=== PATIENT | male | born 2000 | race Caucasian/White ===

== ENCOUNTER 2020-08-29 13:07 | Inpatient (IN) | payer OTHER, SELFPAY ==
[~2020-08-29] VITALS: Ht 170.2 cm; Wt 72.7 kg
[2020-08-29 13:36] LABS: HEMATOCRIT 48.6 % (42.0-52.0); HEMOGLOBIN 16.8 g/dl (13.5-17.5); MEAN CORPUSCULAR HEMOGLOBIN 31.3 pg (27.0-33.0); MEAN CORPUSCULAR HGB CONC 34.6 g/dl (32.0-36.5); MEAN CORPUSCULAR VOLUME 90.7 fl (80.0-96.0); PLATELET COUNT, AUTOMATED 266 10^3/uL (150-450); RED BLOOD COUNT 5.36 10^6/uL (4.30-6.10); WHITE BLOOD COUNT 8.9 10^3/uL (4.0-10.0)
[2020-08-29 14:09] LABS: AMPHETAMINES LEVEL URINE POSITIVE (NEGATIVE); BARBITURATES URINE NEGATIVE (NEGATIVE); BENZODIAZEPINES URINE NEGATIVE (NEGATIVE); CANNABINOIDS URINE POSITIVE (NEGATIVE); COCAINE METABOLITE URINE NEGATIVE (NEGATIVE); METHADONE URINE NEGATIVE (NEGATIVE); OPIATES URINE NEGATIVE (NEGATIVE); PHENCYCLIDINE URINE NEGATIVE (NEGATIVE)
[2020-08-29 14:22] LABS: ALBUMIN 4.5 GM/DL (3.2-5.2); ALT/SGPT 16 U/L (12-78); BILIRUBIN,DIRECT 0.2 MG/DL (0.0-0.2); BILIRUBIN,TOTAL 0.9 MG/DL (0.2-1.0); BLOOD UREA NITROGEN 14 MG/DL (7-18); CALCIUM LEVEL 9.4 MG/DL (8.5-10.1); CARBON DIOXIDE LEVEL 27 MEQ/L (21-32); CHLORIDE LEVEL 110 MEQ/L (98-107); CREATININE FOR GFR 0.91 MG/DL (0.70-1.30); ETHYL ALCOHOL (ETHANOL) < 0.003 % (0.000-0.010); GLOMERULAR FILTRATION RATE > 60.0 (>60); GLUCOSE, FASTING 86 MG/DL (70-100); POTASSIUM SERUM 4.3 MEQ/L (3.5-5.1); SALICYLATE LEVEL 2.2 MG/DL (5.0-30.0); SODIUM LEVEL 141 MEQ/L (136-145); THYROID STIMULATING HORMONE 0.861 uIU/ML (0.358-3.740); TOTAL PROTEIN 7.6 GM/DL (6.4-8.2)
[2020-08-29 14:23] LABS: ACETAMINOPHEN LEVEL < 2.0 UG/ML (10.0-30.0)
[2020-08-29] MEDS ORDERED: NICOTINE 21MG/24HR 1 EA TRANSDERMAL TD ONE (17:20)
[2020-08-30 12:31] LABS: RSV AMPLIFICATION NEGATIVE (NEGATIVE)
[2020-08-30] MEDS ORDERED: MAALOX 30 ML SUSP *UDC PO PRN (13:35)
[2020-08-30] MEDS ORDERED: MOM 30ML SUSPENSION UDC PO PRN (13:35)
[2020-08-30] MEDS ORDERED: ACETAMINOPHEN TAB 650MG DOSE (2X325MG) PO PRN (13:35)
[2020-08-30] MEDS ORDERED: traZODone 50 MG TAB PO PRN (13:35)
[2020-08-30] MEDS: NICOTINE 21MG/24HR 1 EA TRANSDERMAL TD SCH (14:01)
[2020-08-30 16:42] VITALS: BP 142/94
[2020-08-30] MEDS ORDERED: LORazepam 2 MG TAB PO PRN (17:20)
[2020-08-30] MEDS: THIAMINE 100 MG TAB PO SCH (17:30)
[2020-08-31 06:30] VITALS: BP 135/71
[2020-08-31 07:23] VITALS: BP 135/71
--- NOTE | 2020-08-31 08:20 | MHHPEPDOC ---
General Date Of Admission: Aug 30, 2020 Legal Status: 9.39 Chief Complaint "[I relapsed with methamphetamine after 20 days of sobriety. I was frustrated after my father kicked me out. I texted my sister that I was going to kill myself]. History of Present Illness HISTORY OF THE PRESENT ILLNESS: Patient is a 20 -year-old , male, who [has no previous psychiatric history but has significant substance abuse problem since age 16. He has been admitted to [address] [place] [address] for the past year and recently was in 20 days sobriety but relapsed last week with using methamphetamine and his father kicked him out. He was staying with the friend, but was feeling quite frustrated and upset and Stated that he was going to kill himself to his sister and the sister called the police to have him brought to emergency room. On examination on the unit, patient stated that he had no real thoughts of suicide and he just wanted to get some sympathy and attention from his sister. 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 He denies any ongoing serious depression. Denies any history of psychosis or nkechi and denies any history of suicide attempt. He started using drugs since his mother of a heroine overdose when he was 16 years old and dropped out of high school. He is denying any episode of psychosis and denies any current symptoms of paranoia and denies any suicidal thoughts. He denies any alcohol dependency issues, stating that he only drinks 2-3 drinks at most and never had any alcohol withdrawal issues.]. Psychiatric Review of Systems Depression (2 or more weeks): depressed mood, feelings of excess/guilt, other (no history of a serious clinical depression) Nkechi (4 or more days of): denies Psychosis: denies, other (. Denies any history of paranoia with amphetamine use) PTSD: denies Anxiety: denies Past Psychiatric History Previous Psychiatric Diagnosis: [None]. Previous Psychiatric Admissions: [No previous admission and no previous outpatient treatment]. Suicide Attempts: [. More history will attempt]. Psychiatric Follow-up: [, Not in any treatment]. Psychiatric medications: [Never been on any medicine]. Past Medical History Medical Problems Denies any medical issues. Admission labs all within normal limits. Tox screen shows positive amphetamine and cannabis Head Injury: No Seizures: No Hospitalizations: No Surgeries: No Family Medical/Psychiatric HX Medical Problems Noncontributory Psychiatric Disorders: No Addiction: Yes (. Mother was a heroine addict. She of accidental overdose. His father uses cocaine) Suicide Attemps/Completions: No Addiction History cocaine, amphetamines, methamphetamines, other (. Denies any history of opiate use) Social History Childhood: . Uneventful childhood Abuse/Trauma:[Mother of a heroine overdose when the patient was 16 years old]. Current Living Situation: Was living with his father, but was kicked out and is planning to stay with his assist . Education: [Dropped out of [employer]]. Employment: To start working in [employer]. Social Support: [Has a brother and sister was supportive]. Legal: Denies any legal history and no history of violence. Marital: [Has a girlfriend and she just delivered a baby girl]. Mental Status Examination General Appearance: appears stated age Build: average Demeanor: average Eye Contact: average Activity: average, anxious Behavior: cooperative Speech: clear, spontaneous, normal volume Mood: anxious Mood Was depressed and upset because his father kicked him out and he relapsed with methamphetamine, but denies any ongoing depression or anxiety issues Affect: full, appropriate Thought Process: logical/linear Thought Content (Delusions): none reported, denies SI, HI, AVH Thought Content (Other): none reported Thought Content (Aggressive): none reported Perception (Hallucinations): none reported Perception (Other): none reported Cognition (Impairment of): none reported Cognition(Intelligence Est.): average Oriented: Awake, Alert, Oriented times three Insight: fair Judgment: Fair Psychosis: Denies Diagnoses Adjustment disorder with mixed emotion and amphetamine use disorder A-FIB/CHADSVASC A-FIB History Current/History of A-Fib/PAF?: No Current PO Anticoag Therapy: No Age/Risk Factor Scoring CHADSVASC: CHADSVASC Response (Comments) Value Gender Risk Factor Male 0 Hx of CHF No 0 Hx of HTN No 0 Hx of Stroke/TIA/or VTE No 0 Hx of Diabetes No 0 Hx of Vascular Disease No 0 Total 0 Treatment Treatment ordered: NONE Assessment Doesn't appear clinically depressed and does not appear suicidal. Patient to significant methamphetamine use disorder and was offered to refer him to inpatient rehabilitation but patient doesn't want any inpatient rehabilitation service and claims that he can control his addiction, but is strongly suggested to follow up with outpatient addiction treatment. Initial Treatment Plan 1. Patient was admitted on a 9.39 status. 2. Complete history was obtained. 3. With patients permission, family will be contacted and database will be expanded. 4. Patients medication regimen will be reviewed and changed accordingly. 5. Patient will be provided with protected environment. 6. Patient will be treated with individual, group, and milieu therapies. 7. Patient will receive supportive psych-education. 8. Discharge planning will commence immediately. 9. Outpatient follow-up treatment will be strongly recommended. 10. The initial treatment plan will focus initially on: * Depression. * Risk for suicide. ESTIMATED LENGTH OF STAY: 2-3 DAYS. TIME SPENT COUNSELING AND COORDINATING INITIAL CARE: 45 minutes. Tobacco Cessation Screen If Patient is a Smoker Patient is a smoker Tobacco Cessation Tx Ordered?: Yes N/A-No Antipsychotics Vital Signs Vital Signs Date Time Temp Pulse Resp B/P (MAP) Pulse Ox O2 Delivery O2 Flow Rate FiO2 08/31/20 07:23 98.5 60 18 135/71 (92) 99 Room Air Laboratory Data 24H Labs Laboratory Tests 2 08/30/20 11:19: Coronavirus (COVID-19)(PCR) NEGATIVE, Influenza Type A (RT-PCR) NEGATIVE, Influenza Type B (RT-PCR) NEGATIVE, Respiratory Syncytial Virus (PCR) NEGATIVE Medications No Active Prescriptions or Reported Meds Allergies Coded Allergies: No Known Drug Allergies (Verified Allergy, Unknown, 08/29/20) DIMITRI WISEMAN M.D. Aug 31, 2020 08:20
[2020-08-31] MEDS ORDERED: NICOTINE 21MG/24HR 1 EA TRANSDERMAL TD SCH ×2 (09:00)
[2020-08-31] MEDS: FOLIC ACID 1 MG TAB PO SCH (10:25)
[2020-08-31] MEDS: THIAMINE 100 MG TAB PO SCH ×2 (10:25→20:15)
[2020-08-31] MEDS: MULTIVITAMINS/MINERALS THERAP 1 TAB PO SCH (10:25)
[2020-08-31] MEDS: NICOTINE 21MG/24HR 1 EA TRANSDERMAL TD SCH (10:26)
--- NOTE | 2020-08-31 15:00 | HPEPDOC ---
General Date of Admission Aug 30, 2020 at 13:35 Date of Service: Aug 31, 2020 Chief Complaint The patient is a 20-year-old male admitted with a reason for visit of Unspecified Depressive Disorder. History of Present Illness 20 y/o M was admitted to inpatient psychiatry unit for suicidal thoughts. Pt texted her sister that he was going to kill himself after his father "kicked him out." Hospitalist service was consulted for medical evaluation/comanagement. Pt was seen and examined at bedside. Pt was resting comfortably in bed. Pt denied any physical complaint and any suicidal ideations. Home Medications No Active Prescriptions or Reported Meds Allergies Coded Allergies: No Known Drug Allergies (Verified Allergy, Unknown, 08/29/20) Past Medical History Medical History no significant medical or surgical history. No prior hospitalization Family History Significant Family History: Other (mother of heroin overdose ) Social History * Smoker: Denies Alcohol: occationally Drugs: other (methamphetamine) A-FIB/CHADSVASC A-FIB History Current/History of A-Fib/PAF?: No Current PO Anticoag Therapy: No Age/Risk Factor Scoring CHADSVASC: CHADSVASC Response (Comments) Value Gender Risk Factor Male 0 Hx of CHF No 0 Hx of HTN No 0 Hx of Stroke/TIA/or VTE No 0 Hx of Diabetes No 0 Hx of Vascular Disease No 0 Total 0 Review of Systems Constitutional: Denies: Chills, Fever Eyes: Denies: Pain ENT: Denies: Head Aches Skin: Denies: Rash Cardiovascular: Denies: Chest Pain Gastrointestinal: Denies: Nausea Genitourinary: Denies: Dysuria Hematologic: Denies: Bruising Endocrine: Denies: Polydipsia Musculoskeletal: Denies: Neck Pain Neurological: Denies: Weakness Psych: Reports: Mood Normal; Denies: Anxiety Physical Examination General Exam: Positive: Alert, Cooperative, No Acute Distress Eye Exam: Positive: PERRLA ENT Exam: Positive: Atraumatic, Mucous membr. moist/pink Neck Exam: Positive: Supple Chest Exam: Positive: Clear to auscultation Heart Exam: Positive: Rate Normal Abdomen Exam: Positive: Normal bowel sounds Extremity Exam: Negative: Edema Skin Exam: Negative: Rash, Breakdown Neuro Exam: Positive: Normal Gait, Normal Speech, Strength at 5/5 X4 ext Psych Exam: Positive: Mood NL Vital Signs Vital Signs Date Time Temp Pulse Resp B/P (MAP) Pulse Ox O2 Delivery O2 Flow Rate FiO2 08/31/20 07:23 98.5 60 18 135/71 (92) 99 Room Air Assessment/Plan 20 y/o M was admitted to inpatient psychiatry unit after expressing suicidal thoughts that he later denied. Recent labs and vital signs reviewed Utox reviewed- positive for Amphetamine and marijuana Impression- suspected depression 1. suspected depression and one episode of suicidal thought Pt is currently feeling fine and did not have any complaint. Further management as per primary psychiatry team. 2. h/o Substance abuse pt was counselled about substance abuse Pt does not require any further diagnostic work up from medicine perspective. Thank you for consulting hospitalist team, please reconsult as needed. Plan / VTE VTE Prophylaxis Ordered?: No VTE Exclusion Mechanical Proph: Low Risk for VTE ALESSANDRO CORONA MD Aug 31, 2020 15:00
[2020-08-31 18:41] VITALS: BP 118/72
[2020-09-01] MEDS: NICOTINE 21MG/24HR 1 EA TRANSDERMAL TD SCH (08:23)
[2020-09-01] MEDS: FOLIC ACID 1 MG TAB PO SCH (08:23)
[2020-09-01] MEDS: THIAMINE 100 MG TAB PO SCH (08:23)
[2020-09-01] MEDS: MULTIVITAMINS/MINERALS THERAP 1 TAB PO SCH (08:23)
--- NOTE | 2020-09-01 12:22 | MHDSPDOC ---
[facility] Discharge Summary Discharge Summary DATE OF ADMISSION: Aug 30, 2020 at 13:35 DATE OF DISCHARGE: 09/01/2020 DISCHARGE DIAGNOSES: 1. . Adjustment disorder with mixed emotion 2. . Amphetamine user disorder REASON FOR ADMISSION: 20-year-old man with a no previous psychiatric history but has fairly long absence abuse history, primarily amphetamine. Patient was admitted after he told his sister that he was feeling suicidal after he was kicked out of his father's house for relapsing with amphetamine use. Patient denies any serious suicidal intent and stated that he wanted to get some support and sympathy from his sister. He did not present with any gross psychotic symptoms strongly denied any suicidal thoughts. CONSULTANTS INVOLVED: TREATMENT AND PROGRESS ON THE UNIT : Patient was seen for supportive therapy. Lethality evaluation and was given Ativan 1 mg as needed and trazodone 50 mg at bedtime as needed. He maintained good control, continued to deny any suicidal th oughts and denies any psychotic symptoms.. HOSPITAL COURSE: Patient has fully cooperated with palomares activity and tolerated the medicine without any side effect. He slept a good feeling much more hopeful and denies any suicidal thoughts. He is getting support from his sister and is able to stay with, but also has a girlfriend who recently delivered a baby son. Patient is in good spirits, denies any serious depression and feeling positive and hopeful and does not appear to be suicide. DISCHARGE ASSESSMENT: Improved, stable and not suicide MENTAL STATUS EXAMINATION ON DISCHARGE: Patient is a 20-year old male, who is in no acute distress. Speech is , coherent and productive. Language skills are good. Thought processes including: Relevant and coherent . Thought content: Denies any psychotic symptoms and denied any serious depression or suicidal thoughts . Abstract reasoning, and computation: fair. Description of associations: Were organized. Description of abnormal or psychotic thoughts: None. Judgment: fair. Insight: fair. Orientation to , well oriented. Recent and remote memory: Unimpaired. Attention span and concentration: [fair. Language: . Fund of knowledge: . Mood: Euthymic. Affect: , Appropriate. MEDICATIONS ON DISCHARGE: - for ., No psychotropic medication was prescribed at discharge - for . - for . PLAN/FOLLOWUP ARRANGEMENTS: Arranged by the senior media planner. The amount of time spent in the coordination of care for this patient was approximately 35 minutes. ETOH/Disorder Med Rx ETOH/DRUG DISORDER RX: N/A Vital Signs/I&Os Vital Signs Date Time Temp Pulse Resp B/P (MAP) Pulse Ox O2 Delivery O2 Flow Rate FiO2 08/31/20 18:41 97.6 54 14 118/72 (87) 08/31/20 07:23 99 Room Air Medications No Active Prescriptions or Reported Meds Allergies Coded Allergies: No Known Drug Allergies (Verified Allergy, Unknown, 08/29/20) DIMITRI WISEMAN M.D. Sep 01, 2020 12:22
== END 2020-09-01 12:30 | disposition home or self-care (01) | DRG 755 ==
LOC: M ED 13:07 → M ED INP 08-30 13:35 → M PSY 08-30 16:35
PROVIDERS: ADMIT Psychiatry & Neurology Psychiatry; ATTEND Psychiatry & Neurology Psychiatry
DX: F43.25 Adjustment disorder with mixed disturbance of emotions and conduct (principal); F15.10 Other stimulant abuse, uncomplicated; Z81.8 Family history of other mental and behavioral disorders; Z20.822 Contact with and (suspected) exposure to COVID-19